=== PATIENT | male | born 1950 | race African-American/Black ===

== ENCOUNTER 2020-03-31 20:01 | Inpatient (IN) | payer OTHER ==
[~2020-03-31] VITALS: Ht 170.2 cm; Wt 75.3 kg
[2020-03-31 18:38] VITALS: BP 142/72
[2020-03-31 19:00] VITALS: BP 134/60
[2020-03-31 19:10] VITALS: BP 134/60
[2020-03-31 20:00] VITALS: BP 142/67
[2020-03-31 21:00] VITALS: BP 159/70
[2020-03-31 22:00] VITALS: BP 148/82
[2020-03-31] MEDS ORDERED: IPRATROPIUM/ALBUTEROL 0.5-3(2.5)MG/3ML NEB HHN PRN (23:00)
[2020-03-31] MEDS ORDERED: CLONIDINE 0.1MG TABLET PO PRN (23:00)
[2020-03-31] MEDS ORDERED: MORPHINE SULFATE 2 MG/ML CPJ (NOT FOR IM USE) IV PRN (23:00)
[2020-03-31] MEDS ORDERED: ACETAMINOPHEN 325MG TABLET PO PRN (23:00)
[2020-04-01] VITALS (18 sets, daily range): BP systolic 111–149; BP diastolic 56–78
[2020-04-01] MEDS ORDERED: SODIUM CHLORIDE 0.9% 1,000 ML IV SCH (01:00)
[2020-04-01] MEDS: PANTOPRAZOLE 40MG DR TABLET PO SCH (06:22)
[2020-04-01 08:09] LABS: BASOPHILS % 0.7 % (0.0-2.0); EOSINOPHILS % 4.1 % (0.0-5.0); HEMATOCRIT. 24.7 % (42.0-52.0); HEMOGLOBIN. 7.8 g/dL (14.0-18.0); LYMPHOCYTES % 12.6 % (20.0-50.0); MEAN CORPUSCULAR HEMOGLOBIN 24.2 pg (28.0-32.0); MEAN CORPUSCULAR VOLUME 76.4 fL (80.0-94.0); MEAN PLATELET VOLUME 11.2 fl (7.4-10.4); MONOCYTES % 7.2 % (2.0-8.0); NEUTROPHILS % 75.4 % (40.0-76.0); PLATELET 104 x1000/uL (130-400); RED BLOOD CELL COUNT 3.23 mill/uL (4.7-6.1)
[2020-04-01] MEDS: METOPROLOL TARTRATE 25MG TABLET PO SCH ×2 (09:00→21:02)
[2020-04-01 09:11] LABS: CHLORIDE 111 mEq/L (98-107)
[2020-04-01] MEDS: FUROSEMIDE 20MG/2ML VIAL IVP SCH (09:25)
[2020-04-01] MEDS: DEXT 5%/0.45% NACL KCL 20MEQ/L 1,000 ML IV SCH (10:08)
[2020-04-01] MEDS ORDERED: LIDOCAINE HCL 1% 20ML VIAL (Pyxis) INJ ONE (13:41)
[2020-04-01] MEDS ORDERED: IODIXANOL 320MG/ML 100 ML BOTTLE IV ONE (13:42)
[2020-04-01] MEDS ORDERED: MIDAZOLAM HCL 2 MG/2 ML VIAL ONE (14:09)
[2020-04-01] MEDS ORDERED: FENTANYL CITRATE/PF 50MCG/ML 2ML VIAL ONE (14:09)
[2020-04-01 14:10] LABS: PLATELET ESTIMATE DECREASED
[2020-04-01] MEDS ORDERED: ONDANSETRON HCL 4MG/2ML INJ IV PRN (15:00)
[2020-04-01] MEDS ORDERED: ACETAMINOPHEN 325MG TABLET PO PRN (15:00)
[2020-04-01] MEDS ORDERED: ATROPINE SULFATE 1MG/10ML SYR IV PRN (15:00)
[2020-04-01] MEDS ORDERED: ATORVASTATIN CALCIUM 40MG TABLET PO SCH (21:00)
[2020-04-02] VITALS (10 sets, daily range): BP systolic 123–160; BP diastolic 59–83
[2020-04-02] MEDS: DEXT 5%/0.45% NACL KCL 20MEQ/L 1,000 ML IV SCH (01:25)
[2020-04-02] MEDS: PANTOPRAZOLE 40MG DR TABLET PO SCH (05:34)
[2020-04-02 08:24] LABS: BASOPHILS % 0.7 % (0.0-2.0); EOSINOPHILS % 4.1 % (0.0-5.0); HEMATOCRIT. 25.8 % (42.0-52.0); HEMOGLOBIN. 8.2 g/dL (14.0-18.0); LYMPHOCYTES % 15.7 % (20.0-50.0); MEAN CORPUSCULAR HEMOGLOBIN 24.4 pg (28.0-32.0); MEAN CORPUSCULAR VOLUME 76.8 fL (80.0-94.0); MEAN PLATELET VOLUME 11.3 fl (7.4-10.4); MONOCYTES % 8.5 % (2.0-8.0); PLATELET 107 x1000/uL (130-400); RED BLOOD CELL COUNT 3.36 mill/uL (4.7-6.1); RED CELL DISTRIBUTION WIDTH 23.5 % (11.6-14.6)
[2020-04-02] MEDS: METOPROLOL TARTRATE 25MG TABLET PO SCH (08:37)
[2020-04-02] MEDS: FUROSEMIDE 20MG/2ML VIAL IVP SCH (08:37)
[2020-04-02] MEDS ORDERED: POTASSIUM CHLORIDE 20MEQ TABLET SR PO NR (08:45)
[2020-04-02 08:52] LABS: CHLORIDE 108 mEq/L (98-107)
== END 2020-04-02 14:17 | disposition home or self-care (01) | DRG 280 ==
LOC: 3WST 20:01
PROVIDERS: ADMIT Hospitalist; ATTEND Internal Medicine
PROC: 4A023N7 Measurement of Cardiac Sampling and Pressure, Left Heart, Percutaneous Approach (ICD-10-PCS; principal; 2020-04-01)
PROC: B2111ZZ Fluoroscopy of Multiple Coronary Arteries using Low Osmolar Contrast (ICD-10-PCS; 2020-04-01)
DX: I21.4 Non-ST elevation (NSTEMI) myocardial infarction (principal); I50.43 Acute on chronic combined systolic (congestive) and diastolic (congestive) heart failure; D62 Acute posthemorrhagic anemia; I25.10 Atherosclerotic heart disease of native coronary artery without angina pectoris; E11.65 Type 2 diabetes mellitus with hyperglycemia; K31.819 Angiodysplasia of stomach and duodenum without bleeding; Z96.653 Presence of artificial knee joint, bilateral; F17.210 Nicotine dependence, cigarettes, uncomplicated; E78.5 Hyperlipidemia, unspecified; E87.6 Hypokalemia; D69.6 Thrombocytopenia, unspecified; I11.0 Hypertensive heart disease with heart failure; I35.0 Nonrheumatic aortic (valve) stenosis; M19.90 Unspecified osteoarthritis, unspecified site; D63.8 Anemia in other chronic diseases classified elsewhere; Z82.3 Family history of stroke; Z87.11 Personal history of peptic ulcer disease; Z82.49 Family history of ischemic heart disease and other diseases of the circulatory system; I25.2 Old myocardial infarction
CPT/HCPCS: 36415; 80048; 84484; 85025; 93005; 93306; 93458; C1769; C1887; C1893; J1644; J1940; J2250; J3010; J3490; Q9967